=== PATIENT | male | born 1965 | race Hispanic/Latino ===

== ENCOUNTER 2017-02-11 07:48 | Emergency (ER) | payer OTHER ==
[2017-02-11 08:02] VITALS: TEMP 98.2; BMI 23.9
--- NOTE | 2017-02-11 08:08 | ED PDOC ---
Arrival/HPI - General Chief Complaint: Back Pain Time Seen by Provider: 02/11/17 07:50 Historian: Patient - History of Present Illness Narrative History of Present Illness (Text): 02/11/17 08:01 Kevin Mcgrath is a 51 year old male who presents to the emergency department for lower back pain which started yesterday after lifting a heavy object. Pain is similar to when he was diagnosed with sacroiliac joint inflammation. Pain is worsened with movement, sitting up and laying down. Patient notes Tylenol did not alleviate symptoms. Patient denies any fever, chills, chest pain, shortness of breath, nausea, vomiting, diarrhea, urinary symptoms, neck pain, saddle paraesthesia, numbness, incontinence, headache, dizziness, or any other complaints. PMD: None reported Time/Duration: 24 hours Symptom Onset: Gradual Symptom Course: Unchanged Activities at Onset: Other (Lifting) Context: Home Past Medical History - Provider Review Nursing Documentation Reviewed: Yes - Infectious Disease Hx of Infectious Diseases: None - Cardiac Hx Cardiac Disorders: No - Pulmonary Hx Respiratory Disorders: Yes Hx Asthma: Yes (bronchial) - Neurological Hx Neurological Disorder: No - HEENT Hx HEENT Disorder: No - Renal Hx Renal Disorder: No - Endocrine/Metabolic Hx Endocrine Disorders: No - Hematological/Oncological Hx Blood Transfusions: No Hx Blood Transfusion Reaction: No - Integumentary Hx Dermatological Disorder: No - Musculoskeletal/Rheumatological Hx Musculoskeletal Disorders: Yes (sacoilliac joint) Hx Arthritis: Yes - Gastrointestinal Hx Gastrointestinal Disorders: Yes Hx Gastroesophageal Reflux: Yes - Genitourinary/Gynecological Hx Genitourinary Disorders: Yes (urine dribbling) - Psychiatric Hx Psychophysiologic Disorder: Yes Hx Schizophrenia: Yes Hx Substance Use: No - Surgical History Other/Comment: Turpenectomy; Nasal Suspension,tonsillectomy ,pilondial sinus , Fibroma was removed from tight forearm - Anesthesia Hx Anesthesia Reactions: No Hx Malignant Hyperthermia: No Family/Social History - Physician Review Nursing Documentation Reviewed: Yes Family/Social History: No Known Family HX Smoking Status: Former Smoker Hx Alcohol Use: No Hx Substance Use: No Allergies/Home Meds Allergies/Adverse Reactions: Allergies Penicillins Allergy (Verified 11/11/15 23:16) ANAPHYLAXIS Home Medications: Home Meds Medication Instructions Recorded Confirmed Quetiapine Fumarate [Seroquel] 300 mg PO HS 11/11/15 02/11/17 Famotidine/Ca Carb/Mag Hydrox 1 each PO DAILY 02/11/17 02/11/17 [Acid Control Complete Tab Chew] Review of Systems - Physician Review All systems were reviewed & negative as marked: Yes - Review of Systems Constitutional: Normal. absent: Fevers Eyes: Normal ENT: Normal Respiratory: Normal. absent: SOB, Cough Cardiovascular: Normal. absent: Chest Pain Gastrointestinal: Normal. absent: Abdominal Pain, Diarrhea, Nausea, Vomiting Genitourinary Male: Normal. absent: Dysuria, Frequency Musculoskeletal: Back Pain (Bilateral Lower Back Pain ). absent: Neck Pain Skin: Normal Neurological: Normal. absent: Headache, Dizziness Endocrine: Normal Hemo/Lymphatic: Normal Psychiatric: Normal Physical Exam Vital Signs Reviewed: Yes Vital Signs Temp Pulse Resp BP Pulse Ox 02/11/17 08:48 100 H 16 123/79 97 02/11/17 07:54 98.2 F 116 H 18 114/81 98 Temperature: Afebrile Blood Pressure: Normal Pulse: Tachycardic Respiratory Rate: Normal Appearance: Positive for: Well-Appearing, Non-Toxic, Comfortable Pain Distress: None Mental Status: Positive for: Alert and Oriented X 3 - Systems Exam Head: Present: Atraumatic, Normocephalic Pupils: Present: PERRL Extroacular Muscles: Present: EOMI Conjunctiva: Present: Normal Mouth: Present: Moist Mucous Membranes Neck: Present: Normal Range of Motion Respiratory/Chest: Present: Clear to Auscultation, Good Air Exchange. No: Respiratory Distress, Accessory Muscle Use Cardiovascular: Present: Regular Rate and Rhythm, Normal S1, S2. No: Murmurs Abdomen: Present: Normal Bowel Sounds. No: Tenderness, Distention, Peritoneal Signs Back: Present: Paraspinal Tenderness (Paraspinal lower lumbar tenderness), Other (Bilateral Sciatica). No: Pain with Leg Raise Upper Extremity: Present: Normal Inspection. No: Cyanosis, Edema Lower Extremity: Present: Normal Inspection. No: Edema Neurological: Present: GCS=15, CN II-XII Intact, Speech Normal Skin: Present: Warm, Dry, Normal Color. No: Rashes Psychiatric: Present: Alert, Oriented x 3, Normal Insight, Normal Concentration Medical Decision Making ED Course and Treatment: 02/11/17 08:01 Impression: 51 year old male with lower back pain starting after living a heavy chair yesterday. Differential Diagnosis include but are not limited to: Muscle Strain vs. Sciatica Plan: -- Toradol -- Flexeril -- Reassess and disposition Prior Visits: Notes and results from previous visits were reviewed. Patient was last seen in the emergency department on 11/13/2015 for chest pain. Progress Notes: 02/11/17 08:25 On re-evaluation, the patient feels better and is in no acute distress. Patient able to walk with no ataxia. I have discussed the plan with the patient, who expresses understanding. Patient in agreement with plan to discharged home. Patient is stable for discharge. Patient was instructed to take medication as needed and to follow up with physician/clinic in 1-2 days or return if symptoms worsen or new concerning symptoms arise. - Medication Orders Current Medication Orders: Discontinued Medications Cyclobenzaprine HCl (Flexeril) 10 mg PO STAT STA Stop: 02/11/17 08:08 Last Admin: 02/11/17 08:12 Dose: 10 mg Ketorolac Tromethamine (Toradol) 60 mg IM STAT STA Stop: 02/11/17 08:08 Last Admin: 02/11/17 08:12 Dose: 60 mg - Scribe Statement The provider has reviewed the documentation as recorded by the Brit Brewer Provider Attestation: All medical record entries made by the Brit were at my direction and personally dictated by me. I have reviewed the chart and agree that the record accurately reflects my personal performance of the history, physical exam, medical decision making, and the department course for this patient. I have also personally directed, reviewed, and agree with the discharge instructions and disposition. Disposition/Present on Arrival - Present on Arrival Any Indicators Present on Arrival: No History of DVT/PE: No History of Uncontrolled Diabetes: No Urinary Catheter: No History of Decub. Ulcer: No History Surgical Site Infection Following: None - Disposition Have Diagnosis and Disposition been Completed?: Yes Diagnosis: Back pain Disposition: HOME/ ROUTINE Disposition Time: 08:39 Patient Plan: Discharge Condition: IMPROVED Discharge Instructions (ExitCare): Acute Low Back Pain (ED) Additional Instructions: Mr Mcgrath, thank you for letting us take care of you today. Your provider was Dr. Churchill. You were treated for Lumbar Strain/Sciatica. The emergency medical care you received today was directed at your acute symptoms. If you were prescribed any medication, please fill it and take as directed. It may take several days for your symptoms to resolve. Return to the Emergency Department if your symptoms worsen, do not improve, or if you have any other problems. Please contact your doctor or call one of the physicians/clinics you have been referred to that are listed on the Patient Visit Information form that is included in your discharge packet. Bring any paperwork you were given at discharge with you along with any medications you are taking to your follow up visit. Our treatment cannot replace ongoing medical care by a primary care provider (PCP) outside of the emergency department. Thank you for allowing the [facility] team to be part of your care today. If you had an X-Ray or CT scan: A Radiologist will review the ED reading if any change in treatment is needed we will contact you. If you had a blood, urine, or wound culture: It will take several days for the results, if any change in treatment is needed we will contact you. If you had an STI test: It will take 48 hours for the results. Please call after 1 week if you have not heard back. Prescriptions: Cyclobenzaprine [Flexeril] 5 mg PO TID PRN #20 tab PRN Reason: Muscle Spasm Referrals: Cheryl Falk MD [Primary Care Provider] - Follow up with primary Forms: [employer] (Maltese), WORK NOTE
[2017-02-11 08:50] VITALS: BP 123/79; PULSE 100; RESP 16; O2SAT 97
== END 2017-02-11 08:51 | disposition home or self-care (01) ==
LOC: ED 07:48
DX: M54.5 Low back pain (principal); Z87.891 Personal history of nicotine dependence
CPT/HCPCS: 96372; 99283; J1885